=== PATIENT | female | born 1955 | race Caucasian/White ===

== ENCOUNTER 2016-07-28 11:45 | Emergency (ER) | payer OTHER ==
[~2016-07-28] VITALS: Ht 157.5 cm; Wt 66.8 kg
[~2016-07-28 11:45] MED LIST: ADVIN10/60 INH; MOME50SP5; XNX25 PO
[2016-07-28 11:49] VITALS: TEMP 38; Ht 157.5 cm; Wt 66.8 kg
[2016-07-28] MEDS ORDERED: ALPR-411 PO (12:48)
[2016-07-28] MEDS ORDERED: MOME6000 NAE (12:48)
[2016-07-28] MEDS ORDERED: ALBUAER INH (12:48)
[2016-07-28] MEDS ORDERED: ADVIN10050 INH (12:48)
[2016-07-28] MEDS ORDERED: LEVOFLOXACIN 250 MG TAB PO STA (12:51)
--- NOTE | 2016-07-28 13:33 | EMERGENCY ROOM VISIT NOTE ---
History Report prepared by Steven: Reji Melendez Under the Supervision of: Dr. Henri Salamanca D.O. First contact with patient: 12:46 Chief Complaint: RESPIRATORY PROBLEMS Stated Complaint: BRONCHITIS Nursing Triage Summary: Pt c/o cough, fever, congestion, and fatigue since . History of Present Illness The patient is a 61 year old female who presents to the Emergency Room with complaints of persistent respiratory problems beginning 4 days ago. She notes having a cough, fever, congestion, and fatigue. She reports having a history of bronchitis and asthma. The patient denies every smoking. Source of History: patient Onset: 4 days ago Position: other (global) Quality: other (respiratory problems) Timing: other (persistent) Associated Symptoms: + cough, + fatigue, + fevers Note: The patient notes having congestion. Review of Systems See HPI for pertinent positives & negatives. A total of 10 systems reviewed and were otherwise negative. Past Medical & Surgical Medical Problems: (1) Anxiety State Nos (2) Asthma W/Acute Exacerbation Nos (3) Congestive Heart Failure Nos (4) History of asthma (5) History of bronchitis (6) History Of Tobacco Use (7) Hypertension Nos (8) Irritable Bowel Syndrome (9) Ovarian Cyst Nec/Nos (10) Panic Disorder Without Agoraphobia Surgical Problems: (1) History of ankle surgery Family History No pertinent family history stated. Social History Smoking Status: Never Smoker Alcohol Use: occasionally Occupation Status: employed Current/Historical Medications Scheduled Fluticasone Prop/Salmeterol (Advair Diskus 100-50 Mcg/Dose), 1 PUFF INH BID Levofloxacin (Levaquin), 500 MG PO DAILY Miscellaneous Medications Albuterol Sulfate (Proventil Hfa), 2 PUFF INH Alprazolam (Xanax), 0.5 MG PO Mometasone Furoate (Nasal) (Mometasone Furoate), 1 SPRAY ONUR Allergies Uncoded Allergies: CONTRASTMEDIA (Allergy, Unknown, UNKNOWN, 07/28/09) Physical Exam Vital Signs Date Time Temp Pulse Resp B/P Pulse Ox O2 Delivery O2 Flow Rate FiO2 07/28/16 13:45 104 18 116/68 96 07/28/16 12:12 114 07/28/16 12:05 97 Room Air 07/28/16 11:49 38.0 127 18 124/87 95 Room Air Physical Exam CONSTITUTIONAL/VITAL SIGNS: Reviewed / noted above. GENERAL: Non-toxic in appearance. INTEGUMENTARY: Warm, dry, and [place]. HEAD: Normocephalic. EYES: without scleral icterus or trauma. ENT/OROPHARYNX: clear and moist. LYMPHADENOPATHY/NECK: Is supple without lymphadenopathy or meningismus. RESPIRATORY: Lungs clear and equal. CARDIOVASCULAR: Regular rate and rhythm. GI/ABDOMEN: Soft and nontender. No organomegaly or pulsatile mass. No rebound or guarding. Normal bowel sounds. EXTREMITIES: Warm and well perfused. BACK: No CVA tenderness. NEUROLOGICAL: Intact without focal deficits. PSYCHIATRIC: normal affect. MUSCULOSKELETAL: Normally developed with good muscle tone. Medical Decision & Procedures Medications Administered Medications (Trade) Dose Ordered Sig/John Route Start Time Stop Time Status Last Admin Dose Admin Levofloxacin (Levaquin Tab) 500 mg NOW STAT PO 07/28/16 12:51 07/28/16 12:52 DC 07/28/16 13:00 500 MG ED Course 1246: Previous medical records were reviewed. The patient was evaluated in room B6. A complete history and physical examination was performed. 1251: Ordered Levofloxacin 500 mg PO. 1330: On reevaluation, the patient is dong well. I discussed the results and findings with the patient. She verbalized agreement of the treatment plan. The patient was discharged home. Medical Decision the differential was considered includes acute myocardial infarction, acute coronary syndrome, myocarditis, pericarditis, pericardial effusions /tamponad, esophageal perforation, pulmonary embolism, pneumonia, pneumothorax, cardiomyopathy, congestive heart, anemia , COPD/asthma exacerbation. This is a 61-year-old female who presents to the ED with a chief complaint of a cough. The patient has had a cough for the past 3-4 days. She reports a history of asthma and uses inhalers for this. Her temperature today was 38.4. Heart rate is 114. She is no distress. This revealed some scattered expiratory wheezing. The patient did not have any other significant complaints. After evaluation, she was started on Levaquin. She is felt to be stable for discharge. Impression Primary Impression: Sinusitis Additional Impression: Bronchitis Scribe Attestation The scribe's documentation has been prepared under my direction and personally reviewed by me in its entirety. I confirm that the note above accurately reflects all work, treatment, procedures, and medical decision making performed by me. Departure Information Dispostion Home / Self-Care Prescriptions Levofloxacin (Levaquin) 500 Mg Tab 500 MG PO DAILY for 7 Days, #7 TAB Prov: Henri Salamanca D.O. 07/28/16 Referrals Yoav Tejeda D.O. (PCP) Patient Instructions Bronchitis Acute, My [facility] Additional Instructions Follow-up with your doctor for further care and evaluation in 1-2 days. Return to the emergency department for worsening or new symptoms or any concerns. You have been examined and treated today on an emergency basis only. This is not a substitute for, or an effort to provide, complete comprehensive medical care. It is impossible to recognize and treat all injuries or illnesses in a single emergency department visit. It is therefore important that you follow up closely with your doctor. Call as soon as possible for an appointment. Levaquin as prescribed. Use your inhalers. Problem Qualifiers
[2016-07-28] MEDS ORDERED: LEVO-366 PO (13:35)
[2016-07-28 13:45] VITALS: BP 116/68; PULSE 104; O2SAT 96
== END 2016-07-28 13:45 | disposition home or self-care (01) ==
LOC: C.EDB 11:47
DX: J40 Bronchitis, not specified as acute or chronic (principal); J32.9 Chronic sinusitis, unspecified; J45.909 Unspecified asthma, uncomplicated; I10 Essential (primary) hypertension; F41.9 Anxiety disorder, unspecified; I50.9 Heart failure, unspecified; K58.9 Irritable bowel syndrome, unspecified; N83.209 Unspecified ovarian cyst, unspecified side; Z87.891 Personal history of nicotine dependence; Z98.890 Other specified postprocedural states; Z79.899 Other long term (current) drug therapy; Z91.041 Radiographic dye allergy status

== ENCOUNTER → 2016-08-19 | Outpatient (CLI) | payer OTHER ==
[~2016-08-19] MED LIST changes: -ADVIN10/60 INH; +ADVIN10050 INH; +ALBUAER INH; +ALPR-411 PO; +CETI10TA84 PO; -MOME50SP5; +MOME6000 NAE; -XNX25 PO
--- NOTE | 2016-08-20 12:24 | MAMMOGRAPHY REPORT ---
BILATERAL DIGITAL SCREENING MAMMOGRAM TOMOSYNTHESIS WITH CAD: 08/19/2016 CLINICAL HISTORY: Routine screening examination. TECHNIQUE: Breast tomosynthesis in addition to standard 2D mammography was performed. Current study was also evaluated with a Computer Aided Detection (CAD) system. COMPARISON: Comparison is made to exams dated: 08/16/2015 mammogram, 08/15/2014 mammogram, 08/13/2013 mammogram, and 08/07/2011 mammogram - [facility]. BREAST COMPOSITION: There are scattered areas of fibroglandular density in both breasts. FINDINGS: Again noted is a stable benign-appearing 12 mm mass in the lateral left breast. No new heath spicious mass, architectural distortion or cluster of microcalcifications is seen. IMPRESSION: ACR BI-RADS CATEGORY 1: NEGATIVE There is no mammographic evidence of malignancy. A 1 year screening mammogram is recommended. The p atient will receive written notification of the results. Approximately 10% of breast cancers are not detected with mammography. A negative mammographic repor t should not delay biopsy if a clinically suggestive mass is present. Marisa Rinaldi M.D. ay/:08/19/2016 17:00:40 Aerial Installer: Joycelyn VERAS(R)(M), [facility] letter sent: Normal 1/2 BI-RADS Code: ACR BI-RADS Category 1: Negative
== END | disposition home or self-care (01) ==
LOC: C.MAMM 13:09
PROVIDERS: ATTEND Family Medicine
DX: Z12.31 Encounter for screening mammogram for malignant neoplasm of breast (principal)

== ENCOUNTER 2017-03-26 15:00 | Emergency (ER) | payer OTHER ==
[~2017-03-26] VITALS: Ht 157.5 cm; Wt 63.7 kg
[~2017-03-26 15:00] MED LIST changes: -CETI10TA84 PO
[2017-03-26 15:03] VITALS: TEMP 36.8; Ht 157.5 cm; Wt 63.7 kg
[2017-03-26] MEDS ORDERED: CETI10TA84 PO (15:32)
--- NOTE | 2017-03-26 15:33 | DIAGNOSTIC IMAGING REPORT ---
RIGHT HAND 3 VIEWS CLINICAL HISTORY: Right hand injury. FINDINGS: 3 views of the right hand are obtained. No prior studies are available for comparison at the time of dictation. The skeletal structures are osteopenic. There is a minimally distracted spiral fracture through the proximal shaft of the fourth metacarpal. Only mild overlying soft tissue edema is noted. No additional fracture is seen. Mild osteoarthritic change is present involving the interphalangeal joints and the first metacarpophalangeal joint. IMPRESSION: There is a minimally distracted spiral fracture through the proximal shaft of the fourth metacarpal. Electronically signed by: Veto Phillips M.D. 03/26/2017 3:31 PM Dictated Date/Time: 03/26/2017 3:30 PM
--- NOTE | 2017-03-26 15:53 | EMERGENCY ROOM VISIT NOTE ---
ED Visit Note First contact with patient: 15:06 CHIEF COMPLAINT: Right hand injury 1 hour ago HISTORY OF PRESENT ILLNESS: Patient is a [id number] 51-year-old white female who presents to emergency department complaining of right hand pain. She tripped and fell, she states "jamming" her hands, primarily her fourth finger. She states this occurred about 45 minutes to an hour ago. She rates her pain a 5/10. She felt a popping sound at the time of the injury. She denies any other injuries related to the fall. REVIEW OF SYSTEMS: Review of systems as per HPI. All other systems reviewed were negative. At least 6 systems reviewed. PMH: Electronic medical records are reviewed and summarized as above/below. See Problem List. SOCIAL HISTORY: Patient lives at home. Nonsmoker. PHYSICAL EXAM: Vital Signs: Reviewed Nurse's notes. CONSTITUTIONAL: Patient is a pleasant, well-appearing 61-year-old white female who is awake and alert and in no acute distress. MUSCULOSKELETAL: The dorsum of the right hand is slightly swollen. She is tender over the fourth metacarpal. The skin is intact. Flexion and extension of the fingers is full and strong. Wrist is nontender to palpation. The right upper extremity is neurovascularly intact. EMERGENCY DEPARTMENT COURSE: An x-ray of the hand revealed fourth metacarpal fracture. She is placed in an ulnar gutter Ortho-Glass splint. She is established with [facility] and would like to follow-up with them. Medication reconciliation: I attest that I have personally reviewed the patient' s current medication list. Blood pressure screening: Patient was found to have a slightly elevated blood pressure due to circumstances. I do not feel that the patient requires monitoring for hypertension. RIGHT HAND 3 VIEWS CLINICAL HISTORY: Right hand injury. FINDINGS: 3 views of the right hand are obtained. No prior studies are available for comparison at the time of dictation. The skeletal structures are osteopenic. There is a minimally distracted spiral fracture through the proximal shaft of the fourth metacarpal. Only mild overlying soft tissue edema is noted. No additional fracture is seen. Mild osteoarthritic change is present involving the interphalangeal joints and the first metacarpophalangeal joint. IMPRESSION: There is a minimally distracted spiral fracture through the proximal shaft of the fourth metacarpal. Problem List Medical Problems: (1) Anxiety State Nos Status: Chronic (2) Asthma W/Acute Exacerbation Nos Status: Resolved (3) Bronchitis Status: Resolved (4) Congestive Heart Failure Nos Status: Resolved (5) History of asthma Status: Chronic (6) History of bronchitis Status: Resolved (7) History Of Tobacco Use Status: Chronic (8) Hypertension Nos Status: Chronic (9) Irritable Bowel Syndrome Status: Chronic (10) Ovarian Cyst Nec/Nos Status: Resolved (11) Panic Disorder Without Agoraphobia Status: Chronic (12) Right corneal abrasion Status: Resolved (13) Sinusitis Status: Resolved Surgical Problems: (1) History of ankle surgery Status: Resolved Current/Historical Medications Scheduled Fluticasone Prop/Salmeterol (Advair Diskus 100-50 Mcg/Dose), 1 PUFF INH BID Scheduled PRN Albuterol Sulfate (Proventil Hfa), 2 PUFFS INH UD PRN for Asthma/Rescue Alprazolam (Xanax), 0.5 MG PO DAILY PRN for Anxiety Cetirizine (Zyrtec), 10 MG PO DAILY PRN for Allergy Symptoms Allergies Coded Allergies: Iodinated Diagnostic Agents (Verified Allergy, Unknown, Unknown, 03/26/17) Vital Signs Date Time Temp Pulse Resp B/P (MAP) Pulse Ox O2 Delivery O2 Flow Rate FiO2 03/26/17 15:03 36.8 86 18 144/86 98 Room Air Departure Information Impression Primary Impression: Fracture of fourth metacarpal bone of right hand Referrals Yoav Tejeda D.OTrice (PCP) Lyle Bosch MD Patient Instructions [facility] Additional Instructions Ibuprofen(Motrin, Advil) may be used for fever or pain. Use 600mg every six hours as needed. Take with food. Avoid using more than 2400mg in a 24 hour period. Do not use 2400mg per day for more than three consecutive days without physician direction. Prolonged inappropriate use can lead to stomach upset or ulcers. This medication can be taken if you need to drive, work, or perform activities which may be dangerous when taking narcotic pain medication. (AND/OR) Acetaminophen(Tylenol) may be used for fever or pain. Use 1000mg every six hours as needed. Avoid using more than 3000mg in a 24 hour period. This medication can be taken if you need to drive, work, or perform activities which may be dangerous when taking narcotic pain medication. Ice compresses for 20 minutes at a time four times daily for 2-3 days. Rest and elevate your injury. Do not get the splint wet. If your splint feels excessively tight, you have worsening pain, develop numbness or tingling, or your digits appear blue, loosen the susanne wrap. Then reapply the susanne wrap gently without removing the splint. If your symptoms are not quickly relieved return to the ER for re- evaluation. Continue current medications. Return to the ER immediately for any numbness, tingling, severe pain, extreme swelling in the extremity or as needed. Call [facility] tomorrow to arrange follow up for your injury.
[2017-03-26 16:01] VITALS: BP 130/98; PULSE 79; O2SAT 95
== END 2017-03-26 16:01 | disposition home or self-care (01) ==
LOC: C.EDB 15:02 → C.EDD 16:01
DX: S62.324A Displaced fracture of shaft of fourth metacarpal bone, right hand, initial encounter for closed fracture (principal); W18.09XA Striking against other object with subsequent fall, initial encounter; J45.909 Unspecified asthma, uncomplicated; Z87.891 Personal history of nicotine dependence; I10 Essential (primary) hypertension; K58.9 Irritable bowel syndrome, unspecified; F41.0 Panic disorder [episodic paroxysmal anxiety]; Z82.49 Family history of ischemic heart disease and other diseases of the circulatory system

== ENCOUNTER → 2017-08-28 | Outpatient (CLI) | payer OTHER ==
[~2017-08-28] MED LIST changes: +CETI10TA84 PO; -MOME6000 NAE
--- NOTE | 2017-08-28 15:06 | MAMMOGRAPHY REPORT ---
BILATERAL DIGITAL SCREENING MAMMOGRAM TOMOSYNTHESIS WITH CAD: 08/28/2017 CLINICAL HISTORY: Routine screening. Patient has no complaints. TECHNIQUE: Breast tomosynthesis in addition to standard 2D mammography was performed. Current study was also evaluated with a Computer Aided Detection (CAD) system. COMPARISON: Comparison is made to exams dated: 08/16/2015 mammogram, 08/19/2016 mammogram, 08/15/2014 m ammogram, 08/12/2012 mammogram, and 08/07/2011 mammogram - [facility]. BREAST COMPOSITION: There are scattered areas of fibroglandular density in both breasts. FINDINGS: No suspicious masses, calcifications, or areas of architectural distortion are noted in ei ther breast. There has been no significant interval change compared to prior exams. Benign-appearing mass within the left lateral anterior breast is stable dating back to at least the 2008 exam. IMPRESSION: ACR BI-RADS CATEGORY 2: BENIGN There is no mammographic evidence of malignancy. A 1 year screening mammogram is recommended. The pa tient will receive written notification of the results. Approximately 10% of breast cancers are not detected with mammography. A negative mammographic report should not delay biopsy if a clinically suggestive mass is present. Claudia Hawthorne M.D. /:08/28/2017 12:29:01 Feed Preparation Operator: Yady CANTRELL)(), [facility] letter sent: Normal 1/2 BI-RADS Code: ACR BI-RADS Category 2: Benign
== END | disposition home or self-care (01) ==
LOC: C.MAMM 09:13
PROVIDERS: ATTEND Family Medicine
DX: Z12.31 Encounter for screening mammogram for malignant neoplasm of breast (principal)